=== PATIENT | female | born 1975 | race Caucasian/White ===

== ENCOUNTER 2019-03-28 09:26 | Day surgery (SDC) | payer BC ==
[2019-03-28] MEDS ORDERED: PROPOFOL 20 ML (12:46)
== END 2019-03-28 15:23 | disposition home or self-care (01) ==
LOC: GIL 09:26
DX: K26.9 Duodenal ulcer, unspecified as acute or chronic, without hemorrhage or perforation (principal); K29.50 Unspecified chronic gastritis without bleeding; E11.9 Type 2 diabetes mellitus without complications
CPT/HCPCS: 43239; 82962; 88305; 88312